=== PATIENT | female | born 2005 | race African-American/Black ===

== ENCOUNTER 2024-03-31 18:13 | Emergency (ER) | payer BC ==
[~2024-03-31] VITALS: Ht 170.2 cm; Wt 61.2 kg
[2024-03-31] MEDS ORDERED: diphenhydrAMINE 50 MG/ML VIAL ONE ×2 (18:37)
[2024-03-31] MEDS ORDERED: HALOPERIDOL IM 5 MG/ML VIAL ONE (18:37)
[2024-03-31] MEDS: HALOPERIDOL IM 5 MG/ML VIAL IM ONE (18:45)
[2024-03-31] MEDS: diphenhydrAMINE 50 MG/ML VIAL IM ONE (18:45)
[2024-03-31 18:47] VITALS: BP 125/72; PULSE 108; RESP 25; TEMP 98; O2SAT 98
[2024-03-31 19:26] LABS: BASOPHILS % (AUTO) 0.5 % (0.0-2.0); EOSINOPHILS % (AUTO) 0.2 % (0.0-4.0); HEMATOCRIT 40.3 % (36-48); HEMOGLOBIN 13.5 g/dL (12.0-16.0); LYMPHOCYTES % (AUTO) 10.7 % (20.5-51.1); MEAN CORPUSCULAR HEMOGLOBIN 30 pg (27-31); MEAN CORPUSCULAR HGB CONC 34 g/dL (33-37); MEAN CORPUSCULAR VOLUME 90.5 fL (80-94); MONOCYTES # (AUTO) 0.9 K/uL (0.8-1.0); MONOCYTES % (AUTO) 9.7 % (1.7-9.3); NEUTROPHILS # (AUTO) 7.3 K/uL (1.8-7.7); NEUTROPHILS % (AUTO) 78.9 % (42.2-75.2); PLATELET COUNT (AUTO) 417 K/uL (140-450); RED BLOOD CELL COUNT(AUTO) 4.45 MIL/uL (4.20-5.40); RED CELL DISTRIBUTION WIDTH 13.2 % (11.6-13.7); WHITE BLOOD COUNT (AUTO) 9.2 K/uL (4.5-11.0)
[2024-03-31 19:43] LABS: ANION GAP 22.7 (8-16); CALCIUM 10.2 mg/dL (8.5-10.1); CARBON DIOXIDE 17.3 mmol/L (21-32); CREATININE 0.9 mg/dL (0.6-1.3)
[2024-03-31 19:48] LABS: ALCOHOL, BLOOD < 3 mg/dL (<10)
[2024-03-31 19:49] LABS: ACETAMINOPHEN < 0.5 ug/ml (10-30); SALICYLATE < 2.8 mg/dL (2.8-20.0)
[2024-03-31] MEDS: POTASSIUM CHLORIDE 10 MEQ TABER PO ONE (20:56)
[2024-03-31 21:12] LABS: AMPHETAMINE, URINE NEGATIVE ng/ml (NEG <=1000); BARBITURATE, URINE NEGATIVE ng/ml (NEG <=200); BENZODIAZEPINE, URINE NEGATIVE ng/mL (NEG <=200); CANNABINOID, URINE POSITIVE ng/mL (NEG <=50); COCAINE, URINE NEGATIVE ng/mL (NEG <=300); OPIATE, URINE NEGATIVE ng/mL (NEG <=2000); PHENCYCLIDINE SCREEN,URINE NEGATIVE ng/mL (NEG <=25)
[2024-03-31] MEDS: NACL 0.9% 2,000 ML IV ONE (22:09)
[2024-04-01 00:47] VITALS: O2SAT 100
[2024-04-01] MEDS: LORazepam 2 MG/ML VIAL IVP ONE (01:11)
[2024-04-01] MEDS: OLANZapine 5 MG ODT PO ONE (01:35)
[2024-04-01] MEDS: OLANZapine 5 MG ODT SL ONE (01:35)
[2024-04-01 09:01] VITALS: O2SAT 100
[2024-04-01] MEDS ORDERED: MIDAZOLAM 5 MG/5 ML VIAL ONE (13:11)
[2024-04-01] MEDS: MIDAZOLAM 2 MG/2 ML VIAL IM ONE (13:12)
[2024-04-01] MEDS ORDERED: ZIPRASIDONE MESYLATE 20 MG/ML VIAL IM ONE (14:45)
[2024-04-01] MEDS: ZIPRASIDONE MESYLATE 20 MG/ML VIAL IM ONE (15:10)
[2024-04-01 17:10] VITALS: O2SAT 100
[2024-04-01 19:09] VITALS: BP 105/65; PULSE 82; RESP 18; TEMP 98.1; O2SAT 97
== END 2024-04-01 19:09 ==
LOC: MED 18:13
DX: F23 Brief psychotic disorder (principal); R41.82 Altered mental status, unspecified; F79 Unspecified intellectual disabilities; F12.90 Cannabis use, unspecified, uncomplicated
CPT/HCPCS: 36415; 70450; 80048; 80305; 81025; 85025; 93005; 96361; 96372; 96374; 99285; G0480; G0482; J1200; J1630; J2060; J2250; J3486; J7030